=== PATIENT | male | born 1940 | race African-American/Black ===

== ENCOUNTER 2016-03-02 11:31 | Inpatient (IN) | payer MEDICARE, MEDICAID ==
[~2016-03-02] VITALS: Ht 165.1 cm; Wt 51.9 kg
[~2016-03-02 11:31] MED LIST: ACET-784 PO; ALBU8HFA IH; ALEN70TA48 PO; ATOR20TA86 PO; AUD NEB; BENZ200C45 PO; BISA10S PR; BISO5TAB26 PO; BUDE0.5A3 NEB; DORZ210OS OU; ENOX40DI9 SQ; ETOD400T3 PO; FLUT16H NASAL; FLUT1BLS PO; FOLI1 PO; GABA-531 PO; GABA600T PO; HYDR200T4 PO; IPRNEB IH; LEVO500 PO; LOSA50TA37 PO; METH2.5 PO; METH4TAB3 PO; MOM30 PO; MONT10TA21 PO; ONDA4 IV; PRED5 PO; TRAM50TA4 PO; UMEC62.5 IH; VITAD1000 PO; XALA2.5OS OU; ZOLP5 PO; [UNRECOGNIZED DRUG - CODE] PO
[2016-03-02] MEDS ORDERED: DILTIAZEM HCL 5 MG/ML 5 ML VIAL IVP ONE (12:30)
[2016-03-02 12:44] LABS: BASOPHILS % (AUTO) 0.4 % (0.0-2.0); EOSINOPHILS % (AUTO) 4.1 % (1.0-6.0); HEMATOCRIT 36.1 % (41-53); HEMOGLOBIN 11.3 g/dL (13.5-17.5); LYMPHOCYTES # (AUTO) 1.7 K/uL (1.0-4.8); LYMPHOCYTES % (AUTO) 15.5 % (22.0-44.0); MEAN CORPUSCULAR HEMOGLOBIN 26.4 pg (26.0-34.0); MEAN CORPUSCULAR HGB CONC 31.3 G/dL (31.0-37.0); MEAN CORPUSCULAR VOLUME 84 fL (80-100); MONOCYTES # (AUTO) 1.2 K/uL (0.1-1.0); MONOCYTES % (AUTO) 10.7 % (2.0-9.0); NEUTROPHILS # (AUTO) 7.6 K/uL (1.8-7.7); NEUTROPHILS % (AUTO) 69.3 % (40.0-70.0); PLATELET COUNT (AUTO) 302 K/uL (150-450); RED BLOOD CELL COUNT(AUTO) 4.29 MIL/uL (4.50-5.90); RED CELL DISTRIBUTION WIDTH 18.4 % (11.5-14.5); WHITE BLOOD COUNT (AUTO) 10.9 K/uL (4.5-11.0)
[2016-03-02 12:52] LABS: ANION GAP 8 mmol/L (8-16); CALCIUM, TOTAL 8.8 mg/dL (8.8-10.5); CARBON DIOXIDE 27 mmol/L (22-29); CHLORIDE 102 mmol/L (98-107); CREATININE 0.74 mg/dL (0.60-1.30); GLOMERULAR FILTR. RATE CALC > 60 mL/min (>60); POTASSIUM 3.7 mmol/L (3.5-5.1); SODIUM SERUM 137 mmol/L (136-145); UREA NITROGEN, BLOOD 8 mg/dL (7-18)
[2016-03-02 12:56] LABS: INR 1.1 (0.9-1.1); PROTHROMBIN TIME 11.2 SEC (9.4-11.6)
[2016-03-02 13:06] LABS: B-TYPE NATRIURETIC PEPTIDE 238 pg/mL (0-100)
[2016-03-02 13:19] LABS: ALANINE AMINOTRANSFERASE 24 U/L (12-78); ASPARTATE AMINOTRANSFERASE 21 U/L (15-37); BILIRUBIN,TOTAL 0.3 mg/dL (0.1-1.0); CREATINE KINASE, TOTAL 100 U/L (39-308); TOTAL PROTEIN, SERUM 6.7 g/dL (6.4-8.2)
[2016-03-02] MEDS ORDERED: SODIUM CHLORIDE 0.9% 1,000 ML IV ONE (13:45)
[2016-03-02 15:21] LABS: RBC MORPHOLOGY COMMENT ABNORMAL RBC MORPH
[2016-03-02] MEDS ORDERED: ACETAMINOPHEN 325 MG TABLET PO PRN (17:00)
[2016-03-02] MEDS ORDERED: ONDANSETRON HCL 4 MG/2 ML VIAL IVP PRN (17:00)
[2016-03-02] MEDS ORDERED: ONDANSETRON HCL 4 MG TABLET PO PRN (17:30)
[2016-03-02] MEDS ORDERED: IPRATROPIUM BROMIDE 0.5 MG/2.5 ML NEB SOLUTION NEB PRN (17:30)
[2016-03-02] MEDS ORDERED: ALBUTEROL SULFATE 2.5 MG/0.5 ML NEB SOLUTION NEB PRN (17:30)
[2016-03-02] MEDS ORDERED: MAGNESIUM HYDROXIDE SUSPENSION 30 ML UDCUP PO PRN (17:30)
[2016-03-02] MEDS ORDERED: ZOLPIDEM TARTRATE 5 MG TABLET PO PRN (17:30)
[2016-03-02 19:39] VITALS: BP 127/63
[2016-03-02] MEDS: FLUTICASONE PROPIONATE 50 MCG/SPRAY 16 GM NASAL SPRAY NASAL SCH (21:35)
[2016-03-02] MEDS: ATORVASTATIN CALCIUM 20 MG TABLET PO SCH (21:35)
[2016-03-02] MEDS: LATANOPROST 0.005% 2.5 ML OPHTHALMIC SOLUTION OU SCH (21:36)
[2016-03-02] MEDS: BUDESONIDE 0.5 MG/2 ML NEB SOLUTION NEB SCH (23:06)
[2016-03-02] MEDS: TraMADol HCL 50 MG TABLET PO PRN (23:22)
[2016-03-03 00:18] VITALS: BP 118/69
[2016-03-03 05:03] VITALS: BP 120/78
[2016-03-03 07:10] LABS: BASOPHILS % (AUTO) 0.4 % (0.0-2.0); HEMATOCRIT 30.9 % (41-53); HEMOGLOBIN 9.8 g/dL (13.5-17.5); LYMPHOCYTES # (AUTO) 1.5 K/uL (1.0-4.8); LYMPHOCYTES % (AUTO) 15.8 % (22.0-44.0); MEAN CORPUSCULAR HEMOGLOBIN 26.8 pg (26.0-34.0); MEAN CORPUSCULAR HGB CONC 31.6 G/dL (31.0-37.0); MEAN CORPUSCULAR VOLUME 85 fL (80-100); MONOCYTES % (AUTO) 10.2 % (2.0-9.0); NEUTROPHILS # (AUTO) 6.8 K/uL (1.8-7.7); NEUTROPHILS % (AUTO) 69.6 % (40.0-70.0); PLATELET COUNT (AUTO) 275 K/uL (150-450); RED BLOOD CELL COUNT(AUTO) 3.65 MIL/uL (4.50-5.90); RED CELL DISTRIBUTION WIDTH 17.3 % (11.5-14.5); WHITE BLOOD COUNT (AUTO) 9.8 K/uL (4.5-11.0)
[2016-03-03 07:25] LABS: HEMOGLOBIN A1C 6.3 % (4.5-6.2)
[2016-03-03 07:38] LABS: ANION GAP 9 mmol/L (8-16); CALCIUM, TOTAL 8.3 mg/dL (8.8-10.5); CARBON DIOXIDE 25 mmol/L (22-29); CHLORIDE 102 mmol/L (98-107); CHOL/HDL RATIO 2.4 (4.2-7.3); CREATINE KINASE MB 3.8 ng/mL (0-5); CREATINE KINASE, TOTAL 128 U/L (39-308); CREATININE 0.62 mg/dL (0.60-1.30); GLOMERULAR FILTR. RATE CALC > 60 mL/min (>60); POTASSIUM 3.8 mmol/L (3.5-5.1); SODIUM SERUM 136 mmol/L (136-145); THYROID STIMULATING HORMONE 3.15 uIU/mL (0.36-3.74); UREA NITROGEN, BLOOD 7 mg/dL (7-18)
[2016-03-03 07:44] VITALS: BP 132/78
[2016-03-03] MEDS: GABAPENTIN 300 MG CAPSULE PO SCH ×2 (08:09→23:25)
[2016-03-03] MEDS: CHOLECALCIFEROL (VIT D3) 1,000 UNITS TABLET PO SCH (08:09)
[2016-03-03] MEDS: FOLIC ACID 1 MG TABLET PO SCH (08:10)
[2016-03-03] MEDS: BISOPROLOL FUMARATE 5 MG TABLET PO SCH (08:10)
[2016-03-03] MEDS: BENZONATATE 100 MG CAPSULE PO PRN ×2 (08:10→21:09)
[2016-03-03] MEDS: MONTELUKAST SODIUM 10 MG TABLET PO SCH (08:10)
[2016-03-03] MEDS: LOSARTAN POTASSIUM 50 MG TABLET PO SCH (08:10)
[2016-03-03] MEDS: TraMADol HCL 50 MG TABLET PO PRN ×2 (08:10→23:31)
[2016-03-03] MEDS: HYDROXYCHLOROQUINE SULFATE 200 MG TABLET PO SCH (08:11)
[2016-03-03] MEDS: FLUTICASONE/VILANTEROL 200-25 MCG/INH INHALER [14] IH SCH (08:11)
[2016-03-03] MEDS: FLUTICASONE PROPIONATE 50 MCG/SPRAY 16 GM NASAL SPRAY NASAL SCH ×2 (08:11→21:12)
[2016-03-03] MEDS: PredniSONE 5 MG TABLET PO SCH (08:11)
[2016-03-03] MEDS: BISACODYL 10 MG RECTAL RECTAL SUPPOSITORY PR SCH (08:20)
[2016-03-03] MEDS ORDERED: ENOXAPARIN SODIUM 40 MG/0.4 ML PF SYRINGE SQ SCH (09:00)
[2016-03-03] MEDS: APIXABAN 2.5 MG TABLET PO SCH ×2 (09:00→21:09)
[2016-03-03] MEDS ORDERED: LEVALBUTEROL HCL 0.63 MG/3 ML NEB SOLUTION NEB PRN (09:30)
[2016-03-03 09:48] LABS: RBC MORPHOLOGY COMMENT ABNORMAL RBC MORPH
[2016-03-03] MEDS: DILTIAZEM HCL CD 120 MG ER CAPSULE PO SCH (10:51)
[2016-03-03] MEDS: BUDESONIDE 0.5 MG/2 ML NEB SOLUTION NEB SCH ×2 (11:29→19:34)
[2016-03-03 12:11] VITALS: BP 130/90
[2016-03-03 15:56] VITALS: BP 129/66
[2016-03-03] MEDS ORDERED: MAGNESIUM SULFATE 2 GM in DEXTROSE 5%-WATER 50 ML IV PRN (17:45)
[2016-03-03] MEDS ORDERED: MAGNESIUM SULFATE 4 GM/WATER 100 ML IV PRN (17:45)
[2016-03-03 18:09] LABS: ALBUMIN 2.8 g/dL (3.4-5.0)
[2016-03-03 20:32] VITALS: BP 145/76
[2016-03-03] MEDS: MAGNESIUM OXIDE 400 MG TABLET PO PRN (21:09)
[2016-03-03] MEDS: LATANOPROST 0.005% 2.5 ML OPHTHALMIC SOLUTION OU SCH (21:09)
[2016-03-03] MEDS: ATORVASTATIN CALCIUM 20 MG TABLET PO SCH (21:09)
[2016-03-03] MEDS: BRINZOLAMIDE 1% 10 ML OPHTHALMIC SUSPENSION OU SCH (21:12)
[2016-03-04] VITALS (7 sets, daily range): BP systolic 118–126; BP diastolic 71–78
[2016-03-04] MEDS: MAGNESIUM OXIDE 400 MG TABLET PO PRN ×2 (05:48→08:46)
[2016-03-04] MEDS ORDERED: ALENDRONATE SODIUM 70 MG TABLET PO SCH (06:30)
[2016-03-04 07:40] LABS: ALANINE AMINOTRANSFERASE 22 U/L (12-78); ALBUMIN 2.6 g/dL (3.4-5.0); ANION GAP 8 mmol/L (8-16); ASPARTATE AMINOTRANSFERASE 19 U/L (15-37); BILIRUBIN,TOTAL 0.2 mg/dL (0.1-1.0); CALCIUM, TOTAL 8.4 mg/dL (8.8-10.5); CARBON DIOXIDE 28 mmol/L (22-29); CHLORIDE 100 mmol/L (98-107); CREATININE 0.68 mg/dL (0.60-1.30); GLOMERULAR FILTR. RATE CALC > 60 mL/min (>60); POTASSIUM 3.9 mmol/L (3.5-5.1); SODIUM SERUM 136 mmol/L (136-145); UREA NITROGEN, BLOOD 8 mg/dL (7-18)
[2016-03-04 07:47] LABS: BASOPHILS % (AUTO) 0.3 % (0.0-2.0); EOSINOPHILS % (AUTO) 3.8 % (1.0-6.0); HEMATOCRIT 31.1 % (41-53); LYMPHOCYTES # (AUTO) 1.5 K/uL (1.0-4.8); LYMPHOCYTES % (AUTO) 16.8 % (22.0-44.0); MEAN CORPUSCULAR HEMOGLOBIN 27.1 pg (26.0-34.0); MEAN CORPUSCULAR HGB CONC 32.2 G/dL (31.0-37.0); MEAN CORPUSCULAR VOLUME 84 fL (80-100); MONOCYTES % (AUTO) 10.6 % (2.0-9.0); NEUTROPHILS # (AUTO) 6.3 K/uL (1.8-7.7); NEUTROPHILS % (AUTO) 68.5 % (40.0-70.0); PLATELET COUNT (AUTO) 259 K/uL (150-450); RED BLOOD CELL COUNT(AUTO) 3.69 MIL/uL (4.50-5.90); RED CELL DISTRIBUTION WIDTH 17.9 % (11.5-14.5); WHITE BLOOD COUNT (AUTO) 9.2 K/uL (4.5-11.0)
[2016-03-04] MEDS: BISACODYL 10 MG RECTAL RECTAL SUPPOSITORY PR SCH (08:39)
[2016-03-04] MEDS: FOLIC ACID 1 MG TABLET PO SCH (08:46)
[2016-03-04] MEDS: LOSARTAN POTASSIUM 50 MG TABLET PO SCH (08:46)
[2016-03-04] MEDS: HYDROXYCHLOROQUINE SULFATE 200 MG TABLET PO SCH (08:47)
[2016-03-04] MEDS: DILTIAZEM HCL CD 120 MG ER CAPSULE PO SCH (08:47)
[2016-03-04] MEDS: APIXABAN 2.5 MG TABLET PO SCH ×2 (08:47→20:27)
[2016-03-04] MEDS: MONTELUKAST SODIUM 10 MG TABLET PO SCH (08:47)
[2016-03-04] MEDS: FLUTICASONE/VILANTEROL 200-25 MCG/INH INHALER [14] IH SCH (08:47)
[2016-03-04] MEDS: PredniSONE 5 MG TABLET PO SCH (08:47)
[2016-03-04] MEDS: CHOLECALCIFEROL (VIT D3) 1,000 UNITS TABLET PO SCH (08:47)
[2016-03-04] MEDS: GABAPENTIN 300 MG CAPSULE PO SCH ×2 (08:47→20:28)
[2016-03-04] MEDS: BISOPROLOL FUMARATE 5 MG TABLET PO SCH (08:47)
[2016-03-04] MEDS: FLUTICASONE PROPIONATE 50 MCG/SPRAY 16 GM NASAL SPRAY NASAL SCH ×2 (08:48→20:29)
[2016-03-04] MEDS: BRINZOLAMIDE 1% 10 ML OPHTHALMIC SUSPENSION OU SCH ×2 (08:48→20:24)
[2016-03-04] MEDS ORDERED: METHOTREXATE SODIUM 2.5 MG TABLET PO SCH (09:00)
[2016-03-04 09:24] LABS: RBC MORPHOLOGY COMMENT ABNORMAL RBC MORPH
[2016-03-04] MEDS: BUDESONIDE 0.5 MG/2 ML NEB SOLUTION NEB SCH ×2 (09:33→20:06)
[2016-03-04 13:26] LABS: VITAMIN B12 LEVEL 1064 pg/mL (211-911)
[2016-03-04] MEDS: TIOTROPIUM BROMIDE 18 MCG/INH HANDIHALER [5] IH SCH (14:55)
[2016-03-04] MEDS: ATORVASTATIN CALCIUM 20 MG TABLET PO SCH (20:27)
[2016-03-04] MEDS: BENZONATATE 100 MG CAPSULE PO PRN (20:29)
[2016-03-04] MEDS: TraMADol HCL 50 MG TABLET PO PRN (20:29)
[2016-03-04] MEDS: LATANOPROST 0.005% 2.5 ML OPHTHALMIC SOLUTION OU SCH (20:34)
[2016-03-05 04:48] VITALS: BP 132/65
[2016-03-05 07:29] VITALS: BP 120/79
[2016-03-05] MEDS: BUDESONIDE 0.5 MG/2 ML NEB SOLUTION NEB SCH (07:42)
[2016-03-05] MEDS: BRINZOLAMIDE 1% 10 ML OPHTHALMIC SUSPENSION OU SCH (08:55)
[2016-03-05] MEDS: LOSARTAN POTASSIUM 50 MG TABLET PO SCH (08:59)
[2016-03-05] MEDS: DILTIAZEM HCL CD 120 MG ER CAPSULE PO SCH (08:59)
[2016-03-05] MEDS: BISACODYL 10 MG RECTAL RECTAL SUPPOSITORY PR SCH (08:59)
[2016-03-05] MEDS: FOLIC ACID 1 MG TABLET PO SCH (09:00)
[2016-03-05] MEDS: CHOLECALCIFEROL (VIT D3) 1,000 UNITS TABLET PO SCH (09:00)
[2016-03-05] MEDS: GABAPENTIN 300 MG CAPSULE PO SCH (09:00)
[2016-03-05] MEDS: PredniSONE 5 MG TABLET PO SCH (09:00)
[2016-03-05] MEDS: MONTELUKAST SODIUM 10 MG TABLET PO SCH (09:00)
[2016-03-05] MEDS: HYDROXYCHLOROQUINE SULFATE 200 MG TABLET PO SCH (09:00)
[2016-03-05] MEDS: APIXABAN 2.5 MG TABLET PO SCH (09:00)
[2016-03-05] MEDS: BISOPROLOL FUMARATE 5 MG TABLET PO SCH (09:01)
[2016-03-05] MEDS: TIOTROPIUM BROMIDE 18 MCG/INH HANDIHALER [5] IH SCH (09:06)
[2016-03-05] MEDS: FLUTICASONE/VILANTEROL 200-25 MCG/INH INHALER [14] IH SCH (09:06)
[2016-03-05] MEDS: FLUTICASONE PROPIONATE 50 MCG/SPRAY 16 GM NASAL SPRAY NASAL SCH (09:06)
[2016-03-05 09:27] LABS: BASOPHILS % (AUTO) 0.2 % (0.0-2.0); EOSINOPHILS % (AUTO) 4.2 % (1.0-6.0); HEMATOCRIT 36.3 % (41-53); HEMOGLOBIN 11.4 g/dL (13.5-17.5); LYMPHOCYTES # (AUTO) 1.8 K/uL (1.0-4.8); LYMPHOCYTES % (AUTO) 17.1 % (22.0-44.0); MEAN CORPUSCULAR HEMOGLOBIN 26.4 pg (26.0-34.0); MEAN CORPUSCULAR HGB CONC 31.4 G/dL (31.0-37.0); MEAN CORPUSCULAR VOLUME 84 fL (80-100); MONOCYTES # (AUTO) 0.8 K/uL (0.1-1.0); MONOCYTES % (AUTO) 7.8 % (2.0-9.0); NEUTROPHILS # (AUTO) 7.3 K/uL (1.8-7.7); NEUTROPHILS % (AUTO) 70.7 % (40.0-70.0); PLATELET COUNT (AUTO) 294 K/uL (150-450); RED BLOOD CELL COUNT(AUTO) 4.31 MIL/uL (4.50-5.90); RED CELL DISTRIBUTION WIDTH 18.3 % (11.5-14.5); WHITE BLOOD COUNT (AUTO) 10.3 K/uL (4.5-11.0)
[2016-03-05 09:35] LABS: ANION GAP 8 mmol/L (8-16); CALCIUM, TOTAL 8.6 mg/dL (8.8-10.5); CARBON DIOXIDE 27 mmol/L (22-29); CHLORIDE 101 mmol/L (98-107); CREATININE 0.75 mg/dL (0.60-1.30); GLOMERULAR FILTR. RATE CALC > 60 mL/min (>60); POTASSIUM 4.1 mmol/L (3.5-5.1); SODIUM SERUM 136 mmol/L (136-145); UREA NITROGEN, BLOOD 8 mg/dL (7-18)
[2016-03-05 09:54] LABS: RBC MORPHOLOGY COMMENT ABNORMAL RBC MORPH
[2016-03-05 11:26] VITALS: BP 99/59
[2016-05-15] MEDS ORDERED: HYDR200T4 PO (14:33)
[2016-05-15] MEDS ORDERED: METH2.5 PO (14:33)
[2016-05-15] MEDS ORDERED: ATOR20TA86 PO (14:33)
[2016-05-15] MEDS ORDERED: DILT60 PO (14:33)
== END 2016-03-05 11:52 | DRG 309 ==
LOC: EMS 11:31 → 5S 18:24
PROVIDERS: ADMIT Internal Medicine Geriatric Medicine; ATTEND Internal Medicine Geriatric Medicine
DX: I48.0 Paroxysmal atrial fibrillation (principal); Q89.3 Situs inversus; J44.1 Chronic obstructive pulmonary disease with (acute) exacerbation; E44.0 Moderate protein-calorie malnutrition; J84.10 Pulmonary fibrosis, unspecified; D64.9 Anemia, unspecified; E11.9 Type 2 diabetes mellitus without complications; I25.10 Atherosclerotic heart disease of native coronary artery without angina pectoris; F41.9 Anxiety disorder, unspecified; I10 Essential (primary) hypertension; M06.9 Rheumatoid arthritis, unspecified; E78.00 Pure hypercholesterolemia, unspecified; E78.5 Hyperlipidemia, unspecified; I27.2 Other secondary pulmonary hypertension; J45.909 Unspecified asthma, uncomplicated; M81.0 Age-related osteoporosis without current pathological fracture; Z82.49 Family history of ischemic heart disease and other diseases of the circulatory system; Z83.3 Family history of diabetes mellitus; Z87.891 Personal history of nicotine dependence; Z88.0 Allergy status to penicillin; Z88.8 Allergy status to other drugs, medicaments and biological substances; Z91.012 Allergy to eggs; Z79.2 Long term (current) use of antibiotics; Z79.899 Other long term (current) drug therapy; Z98.890 Other specified postprocedural states; Z80.1 Family history of malignant neoplasm of trachea, bronchus and lung
CPT/HCPCS: 82306; 82607; 82746; 83036; 83540; 83550; 83735; 84439; 84443; 85651; 87081; 93005; 94640; 96361; 96374; 99291; J1650; J3490; J8610

== ENCOUNTER 2016-04-11 14:29 | Emergency (ER) | payer MEDICARE, MEDICAID ==
[~2016-04-11] VITALS: Ht 167.6 cm; Wt 63.0 kg
[~2016-04-11 14:29] MED LIST changes: -ACET-784 PO; -ALBU8HFA IH; -AUD NEB; -ENOX40DI9 SQ; -ETOD400T3 PO; -LEVO500 PO; -METH4TAB3 PO
[2016-04-11] MEDS ORDERED: APIX5TAB PO (15:16)
[2016-04-11 15:18] LABS: GLUCOSE,POINT OF CARE 104 MG/DL (70-110)
[2016-04-11 16:08] LABS: BASOPHILS % (AUTO) 0.4 % (0.0-2.0); EOSINOPHILS % (AUTO) 4.2 % (1.0-6.0); HEMATOCRIT 35.3 % (41-53); HEMOGLOBIN 11.3 g/dL (13.5-17.5); LYMPHOCYTES # (AUTO) 1.1 K/uL (1.0-4.8); LYMPHOCYTES % (AUTO) 11.8 % (22.0-44.0); MEAN CORPUSCULAR VOLUME 84 fL (80-100); MONOCYTES % (AUTO) 10.4 % (2.0-9.0); NEUTROPHILS % (AUTO) 73.2 % (40.0-70.0); PLATELET COUNT (AUTO) 263 K/uL (150-450); RED BLOOD CELL COUNT(AUTO) 4.18 MIL/uL (4.50-5.90); RED CELL DISTRIBUTION WIDTH 15.9 % (11.5-14.5); WHITE BLOOD COUNT (AUTO) 9.5 K/uL (4.5-11.0)
[2016-04-11 18:07] LABS: ALANINE AMINOTRANSFERASE 17 U/L (12-78); ALBUMIN 3.4 g/dL (3.4-5.0); ANION GAP 10 mmol/L (8-16); ASPARTATE AMINOTRANSFERASE 14 U/L (15-37); BILIRUBIN,TOTAL 0.3 mg/dL (0.1-1.0); CALCIUM, TOTAL 8.7 mg/dL (8.8-10.5); CARBON DIOXIDE 26 mmol/L (22-29); CHLORIDE 95 mmol/L (98-107); CREATININE 0.63 mg/dL (0.60-1.30); GLOMERULAR FILTR. RATE CALC > 60 mL/min (>60); POTASSIUM 3.7 mmol/L (3.5-5.1); SODIUM SERUM 131 mmol/L (136-145); TOTAL PROTEIN, SERUM 7.4 g/dL (6.4-8.2); UREA NITROGEN, BLOOD 6 mg/dL (7-18)
[2016-04-11 19:18] LABS: APPEARANCE,URINE CLEAR (CLEAR); GLUCOSE, URINE (UA) NEGATIVE (NEGATIVE); KETONES,URINE TRACE mg/dL (NEGATIVE); LEUKOCYTE ESTERASE ,URINE NEGATIVE (NEGATIVE); OCCULT BLOOD,URINE NEGATIVE (NEGATIVE); PROTEIN,URINE NEGATIVE (NEGATIVE)
[2016-04-11 19:26] LABS: ADD UA MICROSCOPIC NO
[2016-04-11 19:41] LABS: GLUCOSE,POINT OF CARE 89 MG/DL (70-110)
[2016-04-11] MEDS ORDERED: SODIUM CHLORIDE 0.9% 100 ML ONE (19:42)
[2016-04-11] MEDS ORDERED: IOVERSOL 350 MG/ML 100 ML VIAL ONE (19:42)
[2016-04-11] MEDS ORDERED: SODIUM CHLORIDE 0.9% 1,000 ML IV ONE (19:45)
[2016-04-11] MEDS ORDERED: BARIUM SULFATE 0.1% SUSPENSION 450 ML BOTTLE PO ONE (20:30)
[2016-04-11] MEDS ORDERED: MORPHINE SULFATE 4 MG/ML SYRINGE IVP ONE (20:45)
[2016-04-12] MEDS ORDERED: MORPHINE SULFATE 4 MG/ML SYRINGE IVP ONE (00:45)
[2016-04-12 02:54] VITALS: BP 156/96
[2016-05-15] MEDS ORDERED: HYDR200T4 PO (14:33)
[2016-05-15] MEDS ORDERED: DILT60 PO (14:33)
[2016-05-15] MEDS ORDERED: ATOR20TA86 PO (14:33)
[2016-05-15] MEDS ORDERED: METH2.5 PO (14:33)
== END 2016-04-12 03:56 | disposition home or self-care (01) ==
LOC: EMS 14:30
DX: R10.32 Left lower quadrant pain (principal); E11.9 Type 2 diabetes mellitus without complications; I10 Essential (primary) hypertension; E78.00 Pure hypercholesterolemia, unspecified; J44.9 Chronic obstructive pulmonary disease, unspecified; J45.909 Unspecified asthma, uncomplicated; Z88.1 Allergy status to other antibiotic agents; Z88.8 Allergy status to other drugs, medicaments and biological substances; Z91.012 Allergy to eggs
CPT/HCPCS: 36415; 74177; 80053; 81003; 82962; 83690; 85025; 96361; 96374; 96376; 99285; J2270 ×2; J7030; J7050; Q9967

== ENCOUNTER 2016-05-27 20:15 | Inpatient (IN) | payer MEDICARE, MEDICAID ==
[~2016-05-27] VITALS: Ht 172.7 cm; Wt 51.1 kg
[~2016-05-27 20:15] MED LIST changes: -ALEN70TA48 PO; +APIX5TAB PO; -BISA10S PR; +DILT60 PO; -GABA600T PO; -IPRNEB IH; -MOM30 PO; -ONDA4 IV; -XALA2.5OS OU; -ZOLP5 PO
[2016-05-27 21:03] LABS: BASOPHILS % (AUTO) 0.2 % (0.0-2.0); EOSINOPHILS % (AUTO) 1.1 % (1.0-6.0); HEMATOCRIT 39.3 % (41-53); HEMOGLOBIN 12.3 g/dL (13.5-17.5); LYMPHOCYTES # (AUTO) 0.7 K/uL (1.0-4.8); LYMPHOCYTES % (AUTO) 5.7 % (22.0-44.0); MEAN CORPUSCULAR HEMOGLOBIN 26.7 pg (26.0-34.0); MEAN CORPUSCULAR HGB CONC 31.2 G/dL (31.0-37.0); MEAN CORPUSCULAR VOLUME 86 fL (80-100); MONOCYTES # (AUTO) 1.1 K/uL (0.1-1.0); MONOCYTES % (AUTO) 9.2 % (2.0-9.0); NEUTROPHILS # (AUTO) 10.2 K/uL (1.8-7.7); NEUTROPHILS % (AUTO) 83.8 % (40.0-70.0); PLATELET COUNT (AUTO) 206 K/uL (150-450); RED BLOOD CELL COUNT(AUTO) 4.59 MIL/uL (4.50-5.90); RED CELL DISTRIBUTION WIDTH 15.9 % (11.5-14.5); WHITE BLOOD COUNT (AUTO) 12.2 K/uL (4.5-11.0)
[2016-05-27 21:20] LABS: ANION GAP 16 mmol/L (8-16); B-TYPE NATRIURETIC PEPTIDE 48 pg/mL (0-100); CALCIUM, TOTAL 8.9 mg/dL (8.8-10.5); CARBON DIOXIDE 21 mmol/L (22-29); CHLORIDE 96 mmol/L (98-107); CREATININE 0.76 mg/dL (0.60-1.30); GLOMERULAR FILTR. RATE CALC > 60 mL/min (>60); SODIUM SERUM 133 mmol/L (136-145); UREA NITROGEN, BLOOD 17 mg/dL (7-18)
[2016-05-27 21:35] LABS: ALANINE AMINOTRANSFERASE 19 U/L (12-78); ALBUMIN 3.3 g/dL (3.4-5.0); ASPARTATE AMINOTRANSFERASE 24 U/L (15-37); BILIRUBIN,TOTAL 0.7 mg/dL (0.1-1.0); CREATINE KINASE, TOTAL 68 U/L (39-308)
[2016-05-27] MEDS ORDERED: ACETAMINOPHEN 325 MG TABLET PO PRN (23:30)
[2016-05-27] MEDS ORDERED: ZOLPIDEM TARTRATE 10 MG TABLET PO PRN (23:30)
[2016-05-27] MEDS ORDERED: MORPHINE SULFATE 2 MG/ML SYRINGE IVP PRN (23:30)
[2016-05-27] MEDS ORDERED: LEVOFLOXACIN 750 MG/D5% WATER 150 ML IV ONE (23:30)
[2016-05-27] MEDS ORDERED: ONDANSETRON HCL 4 MG/2 ML VIAL IVP PRN (23:30)
[2016-05-28] VITALS (7 sets, daily range): BP systolic 98–128; BP diastolic 63–78
[2016-05-28] MEDS ORDERED: HEPARIN SODIUM,PORCINE 5,000 UNITS/ML VIAL SQ SCH
[2016-05-28] MEDS ORDERED: ALBUTEROL SULFATE 2.5 MG/0.5 ML NEB SOLUTION NEB PRN (00:15)
[2016-05-28] MEDS ORDERED: TraMADol HCL 50 MG TABLET PO PRN (00:15)
[2016-05-28] MEDS: OxyCODONE HCL/ACETAMINOPHEN 5-325 MG TABLET PO PRN (00:51)
[2016-05-28] MEDS ORDERED: SODIUM CHLORIDE 0.9% 500 ML IV ONE (01:09)
[2016-05-28] MEDS: ALBUTEROL SULFATE 2.5 MG/0.5 ML NEB SOLUTION NEB SCH ×4 (02:00→20:00)
[2016-05-28] MEDS: BUDESONIDE 0.5 MG/2 ML NEB SOLUTION NEB SCH ×2 (07:37→20:15)
[2016-05-28] MEDS: GABAPENTIN 300 MG CAPSULE PO SCH ×3 (08:29→20:03)
[2016-05-28] MEDS: HYDROXYCHLOROQUINE SULFATE 200 MG TABLET PO SCH (08:29)
[2016-05-28] MEDS: FLUTICASONE PROPIONATE 50 MCG/SPRAY 16 GM NASAL SPRAY NASAL SCH ×2 (08:29→20:03)
[2016-05-28] MEDS: DORZOLAMIDE HCL 2% 10 ML OPHTHALMIC SOLUTION OU SCH ×2 (08:29→20:05)
[2016-05-28] MEDS: LOSARTAN POTASSIUM 50 MG TABLET PO SCH (08:29)
[2016-05-28] MEDS: CHOLECALCIFEROL (VIT D3) 1,000 UNITS TABLET PO SCH (08:30)
[2016-05-28] MEDS: APIXABAN 2.5 MG TABLET PO SCH ×2 (08:30→20:03)
[2016-05-28] MEDS: MONTELUKAST SODIUM 10 MG TABLET PO SCH (08:30)
[2016-05-28] MEDS: FOLIC ACID 1 MG TABLET PO SCH (08:30)
[2016-05-28] MEDS: DILTIAZEM HCL CD 120 MG ER CAPSULE PO SCH (08:30)
[2016-05-28] MEDS: PANTOPRAZOLE SODIUM 40 MG DR TABLET PO SCH (08:30)
[2016-05-28] MEDS: ATORVASTATIN CALCIUM 20 MG TABLET PO SCH (08:30)
[2016-05-28] MEDS: FLUTICASONE/VILANTEROL 200-25 MCG/INH INHALER [14] IH SCH (08:31)
[2016-05-28] MEDS ORDERED: DILT120C3 PO (11:09)
[2016-05-28] MEDS: MethylPREDNISolone SOD SUCC 40 MG/ML VIAL IVP SCH ×2 (16:13→23:21)
[2016-05-28] MEDS: LEVOFLOXACIN 500 MG/D5% WATER 100 ML IV SCH (23:21)
[2016-05-29] MEDS: ALBUTEROL SULFATE 2.5 MG/0.5 ML NEB SOLUTION NEB SCH ×4 (02:00→23:02)
[2016-05-29 04:41] VITALS: BP 109/73
[2016-05-29] MEDS: GABAPENTIN 300 MG CAPSULE PO SCH ×3 (08:17→20:03)
[2016-05-29] MEDS: HYDROXYCHLOROQUINE SULFATE 200 MG TABLET PO SCH (08:17)
[2016-05-29] MEDS: MONTELUKAST SODIUM 10 MG TABLET PO SCH (08:17)
[2016-05-29] MEDS: APIXABAN 2.5 MG TABLET PO SCH ×2 (08:17→20:03)
[2016-05-29] MEDS: MethylPREDNISolone SOD SUCC 40 MG/ML VIAL IVP SCH ×3 (08:17→23:19)
[2016-05-29] MEDS: FOLIC ACID 1 MG TABLET PO SCH (08:17)
[2016-05-29 08:18] VITALS: BP 120/78
[2016-05-29] MEDS: LOSARTAN POTASSIUM 50 MG TABLET PO SCH (08:18)
[2016-05-29] MEDS: FLUTICASONE/VILANTEROL 200-25 MCG/INH INHALER [14] IH SCH (08:18)
[2016-05-29] MEDS: DILTIAZEM HCL CD 120 MG ER CAPSULE PO SCH (08:18)
[2016-05-29] MEDS: CHOLECALCIFEROL (VIT D3) 1,000 UNITS TABLET PO SCH (08:18)
[2016-05-29] MEDS: DORZOLAMIDE HCL 2% 10 ML OPHTHALMIC SOLUTION OU SCH ×2 (08:18→20:03)
[2016-05-29] MEDS: ATORVASTATIN CALCIUM 20 MG TABLET PO SCH (08:18)
[2016-05-29] MEDS: FLUTICASONE PROPIONATE 50 MCG/SPRAY 16 GM NASAL SPRAY NASAL SCH ×2 (08:19→20:02)
[2016-05-29] MEDS: PANTOPRAZOLE SODIUM 40 MG DR TABLET PO SCH (08:25)
[2016-05-29] MEDS: BUDESONIDE 0.5 MG/2 ML NEB SOLUTION NEB SCH (08:44)
[2016-05-29] MEDS ORDERED: BARIUM SULFATE 0.1% SUSPENSION 450 ML BOTTLE ONE (10:31)
[2016-05-29] MEDS ORDERED: IOVERSOL 350 MG/ML 100 ML VIAL ONE (10:31)
[2016-05-29 10:57] LABS: EOSINOPHILS % (AUTO) 0 % (1.0-6.0); HEMATOCRIT 36.1 % (41-53); HEMOGLOBIN 11.4 g/dL (13.5-17.5); LYMPHOCYTES # (AUTO) 0.2 K/uL (1.0-4.8); LYMPHOCYTES % (AUTO) 5.8 % (22.0-44.0); MEAN CORPUSCULAR HEMOGLOBIN 26.9 pg (26.0-34.0); MEAN CORPUSCULAR HGB CONC 31.7 G/dL (31.0-37.0); MEAN CORPUSCULAR VOLUME 85 fL (80-100); MONOCYTES # (AUTO) 0.1 K/uL (0.1-1.0); MONOCYTES % (AUTO) 1.7 % (2.0-9.0); NEUTROPHILS # (AUTO) 3.3 K/uL (1.8-7.7); PLATELET COUNT (AUTO) 208 K/uL (150-450); RED BLOOD CELL COUNT(AUTO) 4.26 MIL/uL (4.50-5.90); RED CELL DISTRIBUTION WIDTH 15.9 % (11.5-14.5); WHITE BLOOD COUNT (AUTO) 3.6 K/uL (4.5-11.0)
[2016-05-29 11:01] LABS: NEUTROPHILS % (AUTO) 92.5 % (40.0-70.0)
[2016-05-29 11:03] LABS: ANION GAP 10 mmol/L (8-16); CALCIUM, TOTAL 8.3 mg/dL (8.8-10.5); CARBON DIOXIDE 26 mmol/L (22-29); CHLORIDE 96 mmol/L (98-107); CREATININE 0.87 mg/dL (0.60-1.30); GLOMERULAR FILTR. RATE CALC > 60 mL/min (>60); SODIUM SERUM 132 mmol/L (136-145); UREA NITROGEN, BLOOD 12 mg/dL (7-18)
[2016-05-29 11:35] VITALS: BP 101/75
[2016-05-29 15:24] VITALS: BP 106/68
[2016-05-29 17:52] LABS: APPEARANCE,URINE CLEAR (CLEAR); GLUCOSE, URINE (UA) NEGATIVE (NEGATIVE); KETONES,URINE TRACE mg/dL (NEGATIVE); LEUKOCYTE ESTERASE ,URINE NEGATIVE (NEGATIVE); OCCULT BLOOD,URINE NEGATIVE (NEGATIVE); PROTEIN,URINE NEGATIVE (NEGATIVE)
[2016-05-29 17:53] LABS: RBC,URINE None Seen /HPF (0-2)
[2016-05-29 17:54] LABS: WBC,URINE 0-2 /HPF (0-5)
[2016-05-29] MEDS ORDERED: 0.9% SODIUM CHLORIDE 10 ML SYRINGE IVP PRN (18:45)
[2016-05-29] MEDS ORDERED: 0.9% SODIUM CHLORIDE 5 ML NEB SOLUTION NEB ONE (19:53)
[2016-05-29 20:03] VITALS: BP 126/78
[2016-05-29] MEDS: LEVOFLOXACIN 500 MG/D5% WATER 100 ML IV SCH (23:19)
[2016-05-29 23:30] VITALS: BP 123/76
[2016-05-30] MEDS: ALBUTEROL SULFATE 2.5 MG/0.5 ML NEB SOLUTION NEB SCH ×4 (02:00→19:55)
[2016-05-30] MEDS ORDERED: 0.9% SODIUM CHLORIDE 5 ML NEB SOLUTION NEB ONE ×2 (02:11→19:42)
[2016-05-30 04:34] VITALS: BP 113/70
[2016-05-30] MEDS: OxyCODONE HCL/ACETAMINOPHEN 5-325 MG TABLET PO PRN (04:44)
[2016-05-30] MEDS: BUDESONIDE 0.5 MG/2 ML NEB SOLUTION NEB SCH ×3 (06:25→19:56)
[2016-05-30 07:40] VITALS: BP 108/74
[2016-05-30] MEDS: ATORVASTATIN CALCIUM 20 MG TABLET PO SCH (08:23)
[2016-05-30] MEDS: HYDROXYCHLOROQUINE SULFATE 200 MG TABLET PO SCH (08:23)
[2016-05-30] MEDS: PANTOPRAZOLE SODIUM 40 MG DR TABLET PO SCH (08:23)
[2016-05-30] MEDS: APIXABAN 2.5 MG TABLET PO SCH ×2 (08:23→20:53)
[2016-05-30] MEDS: MethylPREDNISolone SOD SUCC 40 MG/ML VIAL IVP SCH ×3 (08:23→23:21)
[2016-05-30] MEDS: CHOLECALCIFEROL (VIT D3) 1,000 UNITS TABLET PO SCH (08:23)
[2016-05-30] MEDS: MONTELUKAST SODIUM 10 MG TABLET PO SCH (08:23)
[2016-05-30] MEDS: FLUTICASONE PROPIONATE 50 MCG/SPRAY 16 GM NASAL SPRAY NASAL SCH ×2 (08:23→20:53)
[2016-05-30] MEDS: GABAPENTIN 300 MG CAPSULE PO SCH ×3 (08:23→20:53)
[2016-05-30] MEDS: DILTIAZEM HCL CD 120 MG ER CAPSULE PO SCH (08:23)
[2016-05-30] MEDS: FOLIC ACID 1 MG TABLET PO SCH (08:23)
[2016-05-30] MEDS: LOSARTAN POTASSIUM 50 MG TABLET PO SCH (08:23)
[2016-05-30] MEDS: DORZOLAMIDE HCL 2% 10 ML OPHTHALMIC SOLUTION OU SCH ×2 (08:24→20:53)
[2016-05-30] MEDS: FLUTICASONE/VILANTEROL 200-25 MCG/INH INHALER [14] IH SCH (08:24)
[2016-05-30 11:15] VITALS: BP 114/70
[2016-05-30 15:47] VITALS: BP 118/72
[2016-05-30 19:04] VITALS: BP 116/77
[2016-05-30] MEDS: LEVOFLOXACIN 500 MG/D5% WATER 100 ML IV SCH (23:21)
[2016-05-30 23:22] VITALS: BP 123/76
[2016-05-31] MEDS: ALBUTEROL SULFATE 2.5 MG/0.5 ML NEB SOLUTION NEB SCH ×4 (02:00→20:00)
[2016-05-31] MEDS: OxyCODONE HCL/ACETAMINOPHEN 5-325 MG TABLET PO PRN ×2 (02:45→23:26)
[2016-05-31 04:36] VITALS: BP 105/56
[2016-05-31 07:30] VITALS: BP 118/62
[2016-05-31] MEDS: FOLIC ACID 1 MG TABLET PO SCH (08:24)
[2016-05-31] MEDS: ATORVASTATIN CALCIUM 20 MG TABLET PO SCH (08:24)
[2016-05-31] MEDS: MethylPREDNISolone SOD SUCC 40 MG/ML VIAL IVP SCH ×3 (08:24→23:26)
[2016-05-31] MEDS: LOSARTAN POTASSIUM 50 MG TABLET PO SCH (08:24)
[2016-05-31] MEDS: PANTOPRAZOLE SODIUM 40 MG DR TABLET PO SCH (08:24)
[2016-05-31] MEDS: CHOLECALCIFEROL (VIT D3) 1,000 UNITS TABLET PO SCH (08:24)
[2016-05-31] MEDS: APIXABAN 2.5 MG TABLET PO SCH ×2 (08:25→20:59)
[2016-05-31] MEDS: GABAPENTIN 300 MG CAPSULE PO SCH ×3 (08:25→20:59)
[2016-05-31] MEDS: FLUTICASONE PROPIONATE 50 MCG/SPRAY 16 GM NASAL SPRAY NASAL SCH ×2 (08:25→20:59)
[2016-05-31] MEDS: DILTIAZEM HCL CD 120 MG ER CAPSULE PO SCH (08:25)
[2016-05-31] MEDS: DORZOLAMIDE HCL 2% 10 ML OPHTHALMIC SOLUTION OU SCH ×2 (08:25→20:59)
[2016-05-31] MEDS: MONTELUKAST SODIUM 10 MG TABLET PO SCH (08:25)
[2016-05-31] MEDS: HYDROXYCHLOROQUINE SULFATE 200 MG TABLET PO SCH (08:25)
[2016-05-31] MEDS: FLUTICASONE/VILANTEROL 200-25 MCG/INH INHALER [14] IH SCH (08:25)
[2016-05-31] MEDS ORDERED: 0.9% SODIUM CHLORIDE 5 ML NEB SOLUTION NEB ONE ×3 (09:36→19:57)
[2016-05-31] MEDS: BUDESONIDE 0.5 MG/2 ML NEB SOLUTION NEB SCH ×2 (10:08→20:33)
[2016-05-31 11:35] VITALS: BP 125/74
[2016-05-31 16:39] VITALS: BP 116/72
[2016-05-31 19:33] VITALS: BP 110/65
[2016-05-31] MEDS: LEVOFLOXACIN 500 MG/D5% WATER 100 ML IV SCH (23:26)
[2016-05-31 23:54] VITALS: BP 103/62
[2016-06-01] MEDS ORDERED: 0.9% SODIUM CHLORIDE 5 ML NEB SOLUTION NEB ONE ×2 (01:11→14:57)
[2016-06-01] MEDS: ALBUTEROL SULFATE 2.5 MG/0.5 ML NEB SOLUTION NEB SCH ×3 (02:00→15:02)
[2016-06-01 05:36] VITALS: BP 104/62
[2016-06-01 08:02] VITALS: BP 109/72
[2016-06-01] MEDS: BUDESONIDE 0.5 MG/2 ML NEB SOLUTION NEB SCH (08:38)
[2016-06-01] MEDS: MethylPREDNISolone SOD SUCC 40 MG/ML VIAL IVP SCH ×2 (09:05→15:47)
[2016-06-01] MEDS: FLUTICASONE PROPIONATE 50 MCG/SPRAY 16 GM NASAL SPRAY NASAL SCH (09:05)
[2016-06-01] MEDS: FLUTICASONE/VILANTEROL 200-25 MCG/INH INHALER [14] IH SCH (09:05)
[2016-06-01] MEDS: PANTOPRAZOLE SODIUM 40 MG DR TABLET PO SCH (09:05)
[2016-06-01] MEDS: APIXABAN 2.5 MG TABLET PO SCH (09:07)
[2016-06-01] MEDS: GABAPENTIN 300 MG CAPSULE PO SCH ×2 (09:07→15:47)
[2016-06-01] MEDS: HYDROXYCHLOROQUINE SULFATE 200 MG TABLET PO SCH (09:07)
[2016-06-01] MEDS: ATORVASTATIN CALCIUM 20 MG TABLET PO SCH (09:07)
[2016-06-01] MEDS: DILTIAZEM HCL CD 120 MG ER CAPSULE PO SCH (09:07)
[2016-06-01] MEDS: MONTELUKAST SODIUM 10 MG TABLET PO SCH (09:07)
[2016-06-01] MEDS: CHOLECALCIFEROL (VIT D3) 1,000 UNITS TABLET PO SCH (09:07)
[2016-06-01] MEDS: LOSARTAN POTASSIUM 50 MG TABLET PO SCH (09:07)
[2016-06-01] MEDS: FOLIC ACID 1 MG TABLET PO SCH (09:07)
[2016-06-01] MEDS: DORZOLAMIDE HCL 2% 10 ML OPHTHALMIC SOLUTION OU SCH (09:07)
[2016-06-01 12:00] VITALS: BP 117/64
[2016-06-01] MEDS: OxyCODONE HCL/ACETAMINOPHEN 5-325 MG TABLET PO PRN (15:47)
[2016-06-01 16:05] VITALS: BP 131/83
[2016-06-03] MEDS ORDERED: METHOTREXATE SODIUM 2.5 MG TABLET PO SCH (09:00)
== END 2016-06-01 16:40 | disposition home or self-care (01) | DRG 871 ==
LOC: EMS 20:17 → 6N 23:00
PROVIDERS: ADMIT Hospitalist; ATTEND Hospitalist
DX: A41.9 Sepsis, unspecified organism (principal); J96.20 Acute and chronic respiratory failure, unspecified whether with hypoxia or hypercapnia; E44.1 Mild protein-calorie malnutrition; J44.1 Chronic obstructive pulmonary disease with (acute) exacerbation; N39.0 Urinary tract infection, site not specified; K56.7 Ileus, unspecified; Q89.3 Situs inversus; Z68.1 Body mass index [BMI] 19.9 or less, adult; D50.9 Iron deficiency anemia, unspecified; E11.9 Type 2 diabetes mellitus without complications; E78.00 Pure hypercholesterolemia, unspecified; E78.5 Hyperlipidemia, unspecified; H40.9 Unspecified glaucoma; I10 Essential (primary) hypertension; I48.2 Chronic atrial fibrillation; J45.909 Unspecified asthma, uncomplicated; J47.9 Bronchiectasis, uncomplicated; J84.10 Pulmonary fibrosis, unspecified; K59.00 Constipation, unspecified; M06.9 Rheumatoid arthritis, unspecified; N40.0 Benign prostatic hyperplasia without lower urinary tract symptoms; Z79.899 Other long term (current) drug therapy; Z86.79 Personal history of other diseases of the circulatory system; Z88.1 Allergy status to other antibiotic agents; Z91.012 Allergy to eggs; Z79.01 Long term (current) use of anticoagulants
CPT/HCPCS: 74000; 74177; 87040; 93005; 94640; 96374; 99285; J1956; J2920; J7040